=== PATIENT | male | born 1960 | race Caucasian/White ===

== ENCOUNTER 2020-07-02 14:39 | Emergency (ER) | payer SELFPAY ==
[~2020-07-02] VITALS: Ht 172.7 cm; Wt 98.5 kg
[2020-07-02 14:43] VITALS: BP 158/93
--- NOTE | 2020-07-02 15:03 | NUR ---
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
== END 2020-07-02 15:55 | disposition left against medical advice (07) ==
LOC: ED 15:30
DX: Z02.9 Encounter for administrative examinations, unspecified (principal)